=== PATIENT | female | born 1955 | race Caucasian/White ===

== ENCOUNTER 2024-06-14 13:35 | Observation (INO) ==
[2024-06-14 14:14] LABS: iSTAT Creatinine 0.8 mg/dl (0.6-1.3); iSTAT Ionized Calcium 1.21 mmol/l (1.12-1.32); iSTAT Potassium 3.6 mmol/L (3.3-5.0)
[2024-06-14 14:18] LABS: Hematocrit (blood only) 44.3 % (37.0-47.0); Hemoglobin 14.4 g/dl (12.0-16.0); Mean Corpuscular Hgb Conc 32.5 g/dL (32.0-36.0); Mean Corpuscular Volume 89.3 fL (80.0-100.0); Mean Platelet Volume 8.9 fL (9.4-12.4); Platelet Count 353 K/uL (130-400); RDW Coefficient of Variation 12.8 % (11.5-14.5); Red Blood Count 4.96 M/uL (4.20-5.40); White Blood Count 5.29 K/ul (4.8-10.8)
[2024-06-14 14:35] LABS: Albumin Globulin Ratio 1.6 (0.9-2); Albumin Level 4.6 gm/dl (3.4-5.0); BUN Creatinine Ratio 15.1 (10-20); Bilirubin,Total 0.7 mg/dl (0.2-1.0); Calcium 9.6 mg/dl (8.6-10.3); Creatinine Clr Calc Pharmacy 64.3 ml/min; Globulin 2.8 gm/dl (2.5-4.0); Magnesium 2.1 mg/dl (1.7-2.4); Potassium 3.7 mmol/L (3.5-5.1); Total Protein 7.4 gm/dl (6.0-8.3)
[2024-06-14 14:45] LABS: INR 0.9 (0.9-1.1); Partial Thromboplastin Time 27 Seconds (21-31); Prothrombin Time 10.1 Seconds (9.0-12.0)
--- NOTE | 2024-06-14 15:12 | XRay Report ---
EXAM: X-ray chest one-view portable CLINICAL HISTORY: Stroke, alert not called PRIORS: None TECHNIQUE: Frontal view chest FINDINGS: The chest is well-expanded. No airspace consolidation, effusion or congestive changes. Heart size is top normal. No pneumothorax. Trachea is patent. Osseous structures demonstrate no acute abnormality. No radiopaque foreign body. IMPRESSION: No plain film evidence of an acute cardiopulmonary process. Electronically signed by Ana Ramos 06-14-2024 3:11 PM
--- NOTE | 2024-06-14 15:12 | Electrocardiogram Report ---
Test Reason : Blood Pressure : */* mmHG Vent. Rate : 71 BPM Atrial Rate : 71 BPM P-R Int : 142 ms QRS Dur : 88 ms QT Int : 428 ms P-R-T Axes : 45 4 51 degrees QTcB Int : 465 ms Normal sinus rhythm Possible Left atrial enlargement Cannot rule out Anterior infarct , age undetermined Abnormal ECG When compared with ECG of 07-Dec-1994 18:27, MANUAL COMPARISON REQUIRED PREVIOUS ECG IS INCOMPATIBLE Confirmed by Zaina Lopez ([id number]) on 06/14/2024 3:11:35 PM Referred By: Confirmed By: Zaina Lopez
--- NOTE | 2024-06-14 15:36 | Emergency Department Note ---
ED Visit Note I was consulted by the Advanced Practice Provider, Armani Grady PA-C. I personally made/approved the management plan and take responsibility for the patient management. I performed a substantive portion of the visit. This includes the aspects of: -History/Physical/Personally seeing the patient -MDM .
--- NOTE | 2024-06-14 16:13 | Emergency Department Note ---
History of Present Illness General Chief complaint: Neuro Symptoms/Deficit Stated complaint: NUMB LT ARM, TINGLING, VISION PROBLEM Time Seen by Provider: 06/14/24 14:03 History of Present Illness This 68-year-old female presents today with her , for evaluation of left arm tingling. The patient states last evening she had a right-sided temporal headache that was very brief. She did not think much of it. It did not recur. She felt well the rest of the evening. Today while walking, she developed an aura in her left eye. She states there was a zigzag pattern as well as a crescent type abnormality to her vision in the left eye. 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 She also developed left arm tingling and heaviness. She describes it as though she could not lift anything with the arm. There was no true numbness. The ocular symptoms resolved but the tingling in the arm persisted. It has now also resolved. She denies any chest pain, shortness of breath, nausea, vomiting, back pain, or abdominal pain when her symptoms were present. There is no neck or facial pain. She denies any facial droop, change in speech, change in vision, ringing in her ears, or weakness of her legs. She denies any recent trauma or motor vehicle accidents. She spoke with her daughter(nurse) about her symptoms, and her daughter recommended she come to the ED for evaluation. No other treatment. No history of heart disease. Positive history of migraines. No other complaints. Home Medications Medication Instructions Recorded Confirmed Type levothyroxine 137 mcg tablet 137 mcg PO DAILY 06/14/24 06/14/24 History montelukast 10 mg tablet 10 mg PO DAILY 06/14/24 06/14/24 History amlodipine 5 mg tablet 5 mg PO DAILY #30 tabs 06/15/24 Rx aspirin 81 mg tablet,delayed 81 mg PO DAILY #30 tabs 06/15/24 Rx release atorvastatin 40 mg tablet 40 mg PO DAILY #30 tabs 06/15/24 Rx Allergies Allergy/AdvReac Type Severity Reaction Status Date / Time No Known Allergies Allergy Unverified 06/14/24 14:48 Past Med/Surg History Problem List (Updated 06/14/24 @ 17:10 by Celso Grady PA-C) Abnormal ECG (Acute) Elevated troponin I level (Acute) Medical History (Updated 06/14/24 @ 17:10 by Celso Grady PA-C) 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 Surgical History (Updated 06/14/24 @ 16:11 by Celso Grady PA-C) No pertinent past surgical history Family History (Updated 06/14/24 @ 16:11 by Celso Grady PA-C) Other No pertinent family history Social History (Updated 06/14/24 @ 16:12 by Celso Grady PA-C) Smoking Status: Never smoker Tobacco Type: Declines Second Hand Exposure: No; Do You Dip or Chew Tobacco: No; Hx Alcohol Use: No Hx Substance Use: No Preferred Language: Kosovan Communication Ability: Effective Hearing Ability: Normal 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 Beliefs That Will Affect Care: None Current Living Situation: Alone Current Living Situation Comment: Home alone current occupational status: retired Feels Safe at Home: Yes Assistive Devices: None Review of Systems A total of 10 systems reviewed and were otherwise negative Physical Exam Vital Signs Vital Signs - 24 hr 06/14/24 13:42 06/14/24 14:06 Temperature 36.6 C Temperature Source Temporal Artery Scan Pulse Rate 84 Pulse Rate [Left Finger] 81 Pulse Rhythm [Left Finger] Regular Pulse Strength [Left Finger] Normal Respiratory Rate 18 20 Respiratory Effort / Characteristics Non-Labored Spontaneous Non-Labored Spontaneous Respiratory Depth Normal Normal Respiratory Pattern Regular Regular Blood Pressure 194/120 H Blood Pressure [Left Arm] 197/91 H Blood Pressure Mean 144 Blood Pressure Mean [Left Arm] 126 Pulse Oximetry 98 98 Oxygen Delivery Method Room Air Room Air Sepsis Recent Fever Within 48 Hours No Sepsis New/Unexplained Change in Mental Status N/A Sepsis Action Taken by Nursing No Action Required General: Well-developed, well-nourished, elderly white female, in no acute distress. Sitting in a chair. Alert and oriented. Skin: Warm dry with good turgor. No rashes. No ecchymosis or erythema. HEENT: Normocephalic atraumatic. Eyes PERRLA, EOMI. No conjunctiva or scleral injection. Ears TMs intact bilaterally with good light reflexes. No erythema or bulging. No hemotympanum. Canals are patent. Nares patent bilaterally without turbinate enlargement. No significant drainage. No epistaxis. Oropharynx without erythema or exudate. Uvula midline, oral mucosa moist. No lesions present. Heart: Heart RRR. No MGR. Peripheral pulses are 2+. Lungs: Lungs are clear to auscultation. No crackles rhonchi or wheezing. Good air movement. The patient is able to take a deep breath. Abdomen: Abdomen was inspected, auscultated, and palpated. Bowel sounds present x 4. Soft, nontender to palpation. No hepato-splenomegaly. No masses noted. Musculoskeletal: Gross motor function of the upper and lower extremities is intact and unremarkable. She has no discomfort with palpation or motion of the shoulders, elbows, wrists, hips, knees, or ankles. She is able to walk around the room. Neurologic: Cranial nerves II through XII are intact. Gross sensation is intact across the upper and lower extremities by soft touch. No strength or sensation deficit in the left arm compared to the right. Course Administered Medications Discontinued Medications Aspirin (Aspirin 81 Mg Chew) 324 mg PO NOW [facility] Stop: 06/14/24 19:41 Last Admin: 06/14/24 22:50 Dose: 324 mg Documented By: KAJAL Aspirin (Aspirin 81 Mg Ectab) 81 mg PO DAILY [facility] Stop: 07/15/24 08:59 Last Admin: 06/15/24 08:25 Dose: 81 mg Documented By: ROWDY Enoxaparin Sodium (Enoxaparin Inj 40 Mg/0.4 Ml Syr) 40 mg SQ Q24H [facility] Stop: 07/14/24 19:59 Last Admin: 06/14/24 22:30 Dose: 40 mg Documented By: KAJAL Levothyroxine Sodium (Levothyroxine Sodium 137 Mcg Tablet) 137 mcg PO DAILYBB [facility] Stop: 07/15/24 06:29 Last Admin: 06/15/24 05:31 Dose: 137 mcg Documented By: KAJAL Montelukast Sodium (Montelukast Sodium 10 Mg Tablet) 10 mg PO DAILY [facility] Stop: 07/15/24 08:59 Last Admin: 06/15/24 08:25 Dose: 10 mg Documented By: ROWDY Medical Decision Making Differential Diagnosis ACS, acute CO, GERD, peripheral neuropathy, migraine variant, Intracranial hemorrhage, tumor, supratentorial source. Medical Records Attestation: I reviewed the patient's medical records. Home Medications Current Medication List: was personally reviewed by me Laboratory Data CBC obtained today shows a normal white count 5.29. Normal H&H. Normal platelets. Chemistry panel obtained today shows normal electrolytes, normal BUN/creatinine, normal glucose. Normal LFTs. High-sensitivity troponin obtained today is mildly elevated at 14.9. Repeat troponin 1 1/2 hours later shows consistent level at 15.0. 06/15/24 03:55 06/15/24 03:55 Lab Results 06/14/24 06/14/24 06/14/24 Range/Units 13:58 14:02 14:27 WBC 5.29 (4.8-10.8) K/ul RBC 4.96 (4.20-5.40) M/uL Hgb 14.4 (12.0-16.0) g/dl POC Hgb 15.0 (12.0-16.0) g/dl Hct 44.3 (37.0-47.0) % POC Hct 44 (37-47) % MCV 89.3 (80.0-100.0) fL MCH 29.0 (25.0-34.0) pg MCHC 32.5 (32.0-36.0) g/dL RDW Std Deviation 42.0 (36.4-46.3) fL RDW Coeff of She 12.8 (11.5-14.5) % Plt Count 353 (130-400) K/uL MPV 8.9 L (9.4-12.4) fL PT 10.1 (9.0-12.0) Seconds INR 0.9 (0.9-1.1) APTT 27 (21-31) Seconds PTT Ratio 1.0 POC Sodium 141 (135-144) mmol/L Sodium 140 (136-145) mmol/L POC Potassium 3.6 (3.3-5.0) mmol/L Potassium 3.7 (3.5-5.1) mmol/L POC Chloride 103 (101-112) mmol/L Chloride 104 (98-107) mmol/L Carbon Dioxide 30 (21-32) mmol/L POC Total CO2 26 (24-31) mmol/L Anion Gap 6 (3-11) POC Anion Gap 16.0 (16-25) mmol/L POC BUN 12 (7-18) mg/dl BUN 13 (6-23) mg/dl Creatinine 0.86 (0.6-1.2) mg/dl POC Creatinine 0.8 (0.6-1.3) mg/dl Est Cr Clr Drug Dosing 64.3 ml/min eGFR 72.63 BUN/Creatinine Ratio 15.1 (10-20) Glucose 94 (70-99(Fasting)) mg/dl POC Glucose (other) 97 (70-99) mg/dl Calcium 9.6 (8.6-10.3) mg/dl POC Ioniz Calcium Latanya 1.21 (1.12-1.32) mmol/l Magnesium 2.1 (1.7-2.4) mg/dl Total Bilirubin 0.7 (0.2-1.0) mg/dl AST 17 (13-39) U/L ALT 11 (7-52) U/L Alkaline Phosphatase 98 (34-104) U/L Troponin I High Sens 14.9 H (0-14) pg/ml Total Protein 7.4 (6.0-8.3) gm/dl Albumin 4.6 (3.4-5.0) gm/dl Globulin 2.8 (2.5-4.0) gm/dl Albumin/Globulin Ratio 1.6 (0.9-2) // Range/Units 16:04 WBC (4.8-10.8) K/ul RBC (4.20-5.40) M/uL Hgb (12.0-16.0) g/dl POC Hgb (12.0-16.0) g/dl Hct (37.0-47.0) % POC Hct (37-47) % MCV (80.0-100.0) fL MCH (25.0-34.0) pg MCHC (32.0-36.0) g/dL RDW Std Deviation (36.4-46.3) fL RDW Coeff of She (11.5-14.5) % Plt Count (130-400) K/uL MPV (9.4-12.4) fL PT (9.0-12.0) Seconds INR (0.9-1.1) APTT (21-31) Seconds PTT Ratio POC Sodium (135-144) mmol/L Sodium (136-145) mmol/L POC Potassium (3.3-5.0) mmol/L Potassium (3.5-5.1) mmol/L POC Chloride (101-112) mmol/L Chloride (98-107) mmol/L Carbon Dioxide (21-32) mmol/L POC Total CO2 (24-31) mmol/L Anion Gap (3-11) POC Anion Gap (16-25) mmol/L POC BUN (7-18) mg/dl BUN (6-23) mg/dl Creatinine (0.6-1.2) mg/dl POC Creatinine (0.6-1.3) mg/dl Est Cr Clr Drug Dosing ml/min eGFR BUN/Creatinine Ratio (10-20) Glucose (70-99(Fasting)) mg/dl POC Glucose (other) (70-99) mg/dl Calcium (8.6-10.3) mg/dl POC Ioniz Calcium Latanya (1.12-1.32) mmol/l Magnesium (1.7-2.4) mg/dl Total Bilirubin (0.2-1.0) mg/dl AST (13-39) U/L ALT (7-52) U/L Alkaline Phosphatase (34-104) U/L Troponin I High Sens 15.0 H (0-14) pg/ml Total Protein (6.0-8.3) gm/dl Albumin (3.4-5.0) gm/dl Globulin (2.5-4.0) gm/dl Albumin/Globulin Ratio (0.9-2) Imaging Data My Impression: chest x-ray obtained today shows no consolidation, effusion, or congestive changes. No pneumothorax. Radiologist's Impression: Chest X-Ray 06/14/24 13:45 EXAM: X-ray chest one-view portable CLINICAL HISTORY: Stroke, alert not called PRIORS: None TECHNIQUE: Frontal view chest FINDINGS: The chest is well-expanded. No airspace consolidation, effusion or congestive changes. Heart size is top normal. No pneumothorax. Trachea is patent. Osseous structures demonstrate no acute abnormality. No radiopaque foreign body. IMPRESSION: No plain film evidence of an acute cardiopulmonary process. Electronically signed by Ana Ramos 06-14-2024 3:11 PM ECG Data Additional Comments: EKG obtained today was reviewed with Dr. Bello. It shows a normal sinus rhythm with a rate of 71. Possible left atrial enlargement. Anterior infarct cannot be ruled out. There are no recent studies to compare to. Blood Pressure Blood Pressure Findings: Elevated blood pressure Blood Pressure Disposition: Referred to patients primary care provider MDM Narrative The patient was evaluated in room A3. Conservative care measures were discussed. IV was established. Labs were obtained. She was placed on a cardiac surgeon and remained in normal sinus rhythm with a rate in the 70s. No ectopy was noted. EKG was obtained and showed a normal sinus rhythm with possible left atrial enlargement and anterior lead abnormalities. Repeat EKG almost 2 hours later was unchanged. Her lab work was unremarkable except for her troponin which was mildly elevated at 14.9. Repeat troponin almost 2 hours later showed similar level of 15.0. The patient had no further recurrence of symptoms while in the ED. Given her previous symptoms, mildly elevated troponin, EKG changes, and discussion with Dr. Bello, admission was recommended to the patient. she is in agreement. [facility] hospitalist service was contacted. Please see that dictation for final management. She may require further imaging such as CT scan imaging of the head as well as MRI imaging of the head if symptoms persist. She may also require further imaging of the heart such as echocardiogram or cardiac stress evaluation if symptoms or lab values continue to rise. Impression & Plan Elevated troponin I level, Abnormal ECG Care plan was discussed with Dr. Bello. She will be admitted to the hospitalist service. The patient remained stable while in the ED. She is agreeable to admission. Discharge Plan Visit Data Chief Complaint: Neuro Symptoms/Deficit Stated Complaint: NUMB LT ARM, TINGLING, VISION PROBLEM ED Provider: Owen Bello ED Midlevel Provider: Celso Grady Discharge Problem: Elevated troponin I level, Abnormal ECG Patient Disposition: Admitted As Inpatient Condition: Fair Discharge Instructions Interventions: ED Discharge Assessment Last Done: 06/14/24 18:42 ED DC CONDITION Conditon at Discharge Condition at Discharge: Fair
--- NOTE | 2024-06-14 17:29 | History & Physical Report ---
Date of Service June 14, 2024 Assessment & Plan (1) Elevated troponin I level: Plan 68-year-old female presents with left arm paresthesias and periorbital changes. Has slightly abnormal troponin and a slightly abnormal EKG compared to an old one from 1994. Patient is relatively healthy taking Synthroid and Singulair having no other symptoms and with complete resolution of her presenting symptoms. #Left arm tingling slightly abnormal troponin slightly abnormal EKG. Patient will be observed in our facility on telemetry monitoring she is given a full dose aspirin. She will have troponins checked x 2 and echocardiogram checked. Because of the associated history of ocular migraines and the slight visual changes and left arm tingling patient will have a Noncon CT of the head. Patient follows with [facility] and likely would benefit from cardiovascular screening as an outpatient. Will check fasting lipids in the morning. History of Present Illness Primary Care Provider: Juvencio Flower MD 68-year-old female typically follows with [facility] presents with onset of left arm tingling which occurred when she got up to get to the kitchen. 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 The patient has had recent stressors. In the emergency department the patient had a troponin of 14.9 and 15. EKG with nonspecific changes was recommended for observation. 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 Surgical History (Updated 06/14/24 @ 16:11 by Celso Grady PA-C) No pertinent past surgical history Family History (Updated 06/14/24 @ 16:11 by Celso Grady PA-C) Other No pertinent family history Social History (Updated 06/14/24 @ 16:12 by Celso Grady PA-C) Smoking Status: Never smoker Hx Substance Use: No Hearing Ability: Normal current occupational status: retired Feels Safe at Home: Yes Review of Systems Review of Systems: Is [place] of distress no headache, patient's visual changes were her typical for her ocular migraine they were short-lived and resolved no speech or swallowing issues no chest pain, pressure or palpitations no shortness of breath, cough or wheezes no abdominal pain, nausea or vomiting, diarrhea or constipation no dysuria, hematuria or frequency no focal joint pain or swelling no back pain, CVA tenderness or radicular pain no bruising, bleeding or rashes no focal signs of weakness or symptoms where mostly altered sensation no complaints of anxiety or depression.. Physical Exam Physical Exam: The patient appeared well nourished and normally developed. Vital signs as documented. Head exam is normocephalic atraumatic Neck is without JVD, thyromegaly, or carotid bruits. Lungs are clear to auscultation, no focal loss of breath sounds Cardiac exam, Rhythm is regular.. No murmurs, rubs or gallops. Abdominal exam reveals normal bowel sounds, soft non tender, no masses Extremities are nonedematous and both pedal pulses are present Neurologic exam is alert and oriented, no focal loss of strength or sensation Skin is without bruises or rashes Psychologically is without concerns for anxiety or depression.. Results & Data Results & Data Vital Signs (Past 12 Hours) Vital Signs Temp Pulse Pulse Resp BP BP Pulse Ox 06/14/24 17:00 98 06/14/24 14:06 81 20 197/91 H 98 06/14/24 13:42 97.9 F 84 18 194/120 H 98 O2 Del Method 06/14/24 17:00 Room Air 06/14/24 14:06 Room Air 06/14/24 13:42 Room Air Laboratory Results Reviewed troponins of 14.9-15. Reviewed EKG with normal sinus rhythm without any specific changes for ischemia or infarct Code Status & VTE Plan VTE Prophylaxis Plan VTE Prophylaxis will be ordered: Yes PG Care Time/CCT Total # of Minutes Spent Total Time Spent with Patient: Total time spent is greater than 50% in coordination of care (as documented) at patient's floor/unit and/or counseling patient: Coding Level of Care Code 42998 INT INP/OBS CARE 2/MIN Diagnoses Elevated troponin I level R79.89
--- NOTE | 2024-06-14 17:50 | CT Scan Report ---
EXAM: CT head without contrast. History: Left visual changes and left arm paresthesias. Comparison: None. Technique: Using multidetector thin collimation helical acquisition technique, axial, coronal and sagittal CT images from the skull base to the vertex without intravenous contrast. Dose reduction techniques were achieved by using automatic exposure control and/or adjustment of mA and/or kV according to patient size and/or use of iterative reconstruction technique. Findings: Comic Book Writer film demonstrates no hemorrhage, mass or acute large ter no acute abnormality. Brain windows demonstrate ventricles and sulci to be within normal limits for patient's age. No hemorrhage, mass or acute large territorial infarct. No midline shift. Basal cisterns are patent. Hyposmall hypodensity density right go radiata and centrum semiovale. Orbital soft tissues demonstrate are within normal limits. Bone windows demonstrate skull base and bony calvarium to be within normal limits. Impression: Nonspecific focal hypodensity right go radiata and centrum semiovale. Small acute infarct at this level cannot be excluded. Correlate with clinical data. MRI would be helpful for further characterization. Otherwise no acute process. Electronically signed by Obdulio Lee 06-14-2024 5:50 PM
[2024-06-14 19:40] VITALS: RESP 18
[2024-06-14] MEDS ORDERED: NITROGLYCERIN SL 0.4 MG/TAB TAB SL PRN (19:40)
[2024-06-14] MEDS ORDERED: MAGNESIUM HYDROXIDE SUSP 30 ML UDC PO PRN (19:40)
[2024-06-14] MEDS ORDERED: ACETAMINOPHEN 325 MG TAB PO PRN (19:40)
[2024-06-14] MEDS ORDERED: ONDANSETRON INJ 2 MG/ML 2 ML VIAL IV PRN (19:40)
[2024-06-14] MEDS: ENOXAPARIN INJ 40 MG/0.4 ML SYR SQ SCH (22:30)
[2024-06-14] MEDS: ASPIRIN 81 MG CHEW PO STA (22:50)
[2024-06-15 03:03] VITALS: O2SAT 96
[2024-06-15 04:09] LABS: Hematocrit (blood only) 38.1 % (37.0-47.0); Hemoglobin 12.6 g/dl (12.0-16.0); Mean Corpuscular Hemoglobin 29.4 pg (25.0-34.0); Mean Corpuscular Hgb Conc 33.1 g/dL (32.0-36.0); Mean Corpuscular Volume 88.8 fL (80.0-100.0); Mean Platelet Volume 8.9 fL (9.4-12.4); Platelet Count 328 K/uL (130-400); RDW Coefficient of Variation 12.7 % (11.5-14.5); RDW Standard Deviation 41.6 fL (36.4-46.3); Red Blood Count 4.29 M/uL (4.20-5.40); White Blood Count 5.46 K/ul (4.8-10.8)
[2024-06-15 04:24] LABS: BUN Creatinine Ratio 27.7 (10-20); Calcium 8.8 mg/dl (8.6-10.3); Chol HDL Ratio 2.9 (0-5); Potassium 3.5 mmol/L (3.5-5.1)
[2024-06-15 04:31] LABS: Troponin I High Sensitivity 18.5 pg/ml (0-14)
[2024-06-15] MEDS: LEVOTHYROXINE SODIUM 137 MCG TABLET PO SCH (05:31)
--- NOTE | 2024-06-15 07:26 | Hospitalist Progress Note ---
Date of Service June 15, 2024 Assessment & Plan (1) Elevated troponin I level: Plan 68-year-old female presents with left arm paresthesias and periorbital changes. Has slightly abnormal troponin and a slightly abnormal EKG compared to an old one from 1994. Patient is relatively healthy taking Synthroid and Singulair having no other symptoms and with complete resolution of her presenting symptoms. #Left arm tingling slightly abnormal troponin slightly abnormal EKG. Patient will be observed in our facility on telemetry monitoring she is given a full dose aspirin. She will have troponins checked x 2 and echocardiogram checked. Because of the associated history of ocular migraines and the slight visual changes and left arm tingling patient will have a Noncon CT of the head. Patient follows with [facility] and likely would benefit from cardiovascular screening as an outpatient. Will check fasting lipids in the morning. # CT head with concern of small subacute stroke, await Echo, on aspirin, discuss statin, discuss MRI Admission and Anticipated Discharge Date Admission Date: June 14, 2024 Results & Data Results & Data Vital Signs (Past 12 Hours) Vital Signs Temp Pulse Pulse Resp BP Pulse Ox O2 Del Method 06/15/24 07:07 97.7 F 67 18 167/80 H 96 Room Air 06/15/24 03:02 97.7 F 70 18 163/86 H 96 Room Air 06/14/24 22:43 97.7 F 67 18 143/76 H 97 Room Air 06/14/24 22:12 86 06/14/24 19:40 97.9 F 85 16 191/93 H 98 Room Air PG Care Time/CCT Total # of Minutes Spent Total Time Spent with Patient: Total time spent is greater than 50% in coordination of care (as documented) at patient's floor/unit and/or counseling patient: Coding Diagnoses Elevated troponin I level R79.89
[2024-06-15] MEDS: ASPIRIN 81 MG ECTAB PO SCH (08:25)
[2024-06-15] MEDS: MONTELUKAST SODIUM 10 MG TABLET PO SCH (08:25)
[2024-06-15] MEDS ORDERED: LORazepam 0.5 MG TAB PO STA (08:46)
--- NOTE | 2024-06-15 08:48 | Electrocardiogram Report ---
Test Reason : Blood Pressure : */* mmHG Vent. Rate : 69 BPM Atrial Rate : 69 BPM P-R Int : 150 ms QRS Dur : 84 ms QT Int : 436 ms P-R-T Axes : 43 5 29 degrees QTcB Int : 467 ms Normal sinus rhythm Cannot rule out Anterior infarct (cited on or before 14-Jun-2024) Abnormal ECG When compared with ECG of 14-Jun-2024 13:48, No significant change was found Confirmed by Zaina Lopez ([id number]) on 06/15/2024 8:48:25 AM Referred By: REFERRED SELF Confirmed By: Zaina Lopez
[2024-06-15 11:37] VITALS: BP 183/93; TEMP 97.9
[2024-06-15] MEDS ORDERED: Nursing to Pharmacy Communication SCH (14:15)
[2024-06-15] MEDS ORDERED: STROKE PATIENT DISCHARGE STA (14:22)
[2024-06-15] MEDS ORDERED: PHARMACIST DISCHARGE MED REC CONSULT ONE (14:30)
--- NOTE | 2024-06-15 14:34 | Discharge Summary ---
Discharge Summary Date of Service June 15, 2024 Principal Dx & Hospital Course #1 = Principal Diagnosis (1) Elevated troponin I level: Plan 68-year-old female presents with left arm paresthesias and periorbital changes. Has slightly abnormal troponin and a slightly abnormal EKG compared to an old one from 1994. Patient is relatively healthy taking Synthroid and Singulair having no other symptoms and with complete resolution of her presenting symptoms. CT scan suggest small stroke as possible etiology of her symptoms #Left arm tingling slightly abnormal troponin slightly abnormal EKG. troponin trend did not rise significantly. Echocardiogram is not read at time of discharge however I feel most of her symptoms might be related to the small stroke seen on CT scan of the head. # CT head with concern of small acute stroke, MRI cannot have the patient scheduled within the calendar day. Subsequently patient was to go home and have an outpatient MRI performed. She will be on a baby aspirin a day and atorvastatin 40. She is mildly hypertensive and will initiate low-dose amlodipine to help with blood pressure control course all this will need to be followed up with her family physician as an outpatient Notes For Next Care Provider Patient will need atorvastatin amlodipine survey to see if there are appropriate medications for her. Follow-up in echo results and MRI will need to be scheduled. Additional cardiovascular screening such as carotid arteries could be considered Admission HPI Per Admitting Provider 68-year-old female typically follows with [facility] medicine presents with onset of left arm tingling which occurred when she got up to get to the kitchen. 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 The patient has had recent stressors. In the emergency department the patient had a troponin of 14.9 and 15. EKG with nonspecific changes was recommended for observation. Discharge Exam Awake alert appropriate complete resolution of symptoms no neurological deficits Discharge Plan Discharge Items Patient Disposition: Home - Self-Care Reason For Visit: LEFT ARM TINGLING Discharge Diagnosis: possible subacute stroke elevation of troponin level Activity: Per Instructions section Activity Comment: no intentional exercise until seen in follow up Non-emergency contact: Primary Care Provider and Neurologist Call non-emergency contact if: your symptoms worsen Follow-up/Referrals: Juvencio Flower MD [Primary Care Provider] - 06/18/24 11:05 am (Hospital follow up scheduled June 18 at 11:05) Diet: Heart Healthy Addtl Attending Provider Instructions: A stroke is damage to the brain that occurs when a blood vessel in the brain bursts or is blocked by a blood clot. Without blood and the oxygen it carries, part of the brain is damaged. The part of your body controlled by that part of your brain may not function properly now. The brain is an amazing organ that can heal itself to some degree. The stroke you had damaged part of your brain. But other parts of your brain may take over in some way for the damaged areas. Your doctor will talk with you about what you can do to prevent another stroke. You can help by managing other health problems that raise your risk, such as atrial fibrillation or high blood pressure. Have a heart-healthy lifestyle which includes being active, eating healthy foods, staying at a healthy weight, and not smoking. You may also take medicine that prevents blood clots. Enter a stroke rehabilitation (rehab) program if your doctor recommends it. Stroke rehab is training and therapy to help you recover, prevent problems, and relearn how to do everyday things you have not been able to do since your stroke. The focus will depend on how the stroke has affected your ability to do the things you want and need to do. Follow-up care is a prasad part of your treatment and safety.Be sure to make and go to all appointments, and call your doctor or nurse advice line if you are having problems. It's also a good idea to know your test results and keep a list of the medicines you take. How can you care for yourself at home? Manage other health problems that raise your risk of another stroke. These include atrial fibrillation, diabetes, high blood pressure, and high cho lesterol.Have a heart-healthy lifestyle. Don't smoke and avoid second-hand smoke. If you drink alcohol, try to drink less. Your risk of harm from alcohol is low if you have 2 drinks or lessper week. Work with your doctor to find what is right for you. Stay at a healthy weight. Lose weight if you need to. Be active. Ask your doctor what type and level of activity is safe for you. Eat heart-healthy foods. These include vegetables, fruits, nuts, beans, lean meat, fish, and whole grains. Limit sodium and sugar.Avoid infections such as COVID-19, colds, and influenza (flu). Get the flu vaccine every year. Get a pneumococcal vaccine shot. If you have had one before, ask your doctor whether you need another dose. Stay up to date on your COVID-19 vaccines.If you think you may have a problem with alcohol or drug use, talk to your doctor. Medicines Be safe with medicines. Take your medicines exactly as prescribed. Call your doctor or nurse advice line if you think you are having a problem with your medicine. You will get more details on the specific medicines your doctor prescribes.You may take a few medicines to help lower your risk of another stroke. These include: Blood pressure medicine such as an IVONE (angiotensin-converting enzyme) inhibitor, angiotensin II receptor meena (ARBs), or diuretic. Cholesterol medicine such as a statin. Aspirin or another blood thinner to prevent blood clots.If your doctor prescribed a blood thinner, be sure you get instructions about how to take your medicine safely. Blood thinners can cause serious bleeding problems.Do not take any wesm-hfz-rjdufmy medicines or natural health products without talking to your doctor first.If you take hormonal control or hormone therapy for menopause, talk to your doctor about whether they are right for you. They may raise the risk of stroke in some people. When should you call for help? [id number] you think you may need emergency care. For example, call if: You have signs of another stroke. These may include: Sudden numbness, tingling, weakness, or loss of movement in your face, arm, or leg, especially on only one side of your body. Sudden vision changes. Sudden trouble speaking. Sudden confusion or trouble understanding simple statements. Sudden problems with walking or balance. A sudden, severe headache that is different from past headaches. Fainting. A seizure.[id number] if these symptoms go away in a few minutes. Call your doctor or nurse advice line nowor seek immediate medical care if: You have new symptoms that may be related to your stroke, such as falls or trouble swallowing. Addtl Public Works Technician Provider Instructions: It be in your best interest to complete an outpatient MRI of your brain and follow-up with your primary care about the final read of your echocardiogram. Pending Studies at Discharge: Yes Studies:: Final Echo read, MRI not performed Stand-Alone Forms: My [facility] [employer], Smoking Cessation, Medications to Prevent Stroke Medications and DC Order Prescriptions: New aspirin 81 mg Tablet,Delayed Release (Dr/Ec) 81 mg PO DAILY Qty: 30 5RF atorvastatin 40 mg tablet 40 mg PO DAILY Qty: 30 5RF amlodipine 5 mg tablet 5 mg PO DAILY Qty: 30 5RF Continued levothyroxine 137 mcg tablet 137 mcg PO DAILY montelukast 10 mg tablet 10 mg PO DAILY Discharge Orders: Discharge Order (Routine); Ordered 06/15/24 Ordered By: Nikolas Mary/Other Patient Handouts: Symptoms of Stroke, Stroke: Taking Medicines Admission Data Admit Date/Time: 06/14/24 17:05 Attending Provider: Nikolas Jose Admit Provider: Nikolas Jose Primary Care Provider: Juvencio Flower Other Providers: Nikolas Jose Other Interventions: Discharge Summary Assessment (RN) Last Done: 06/15/24 14:42 Hospital Stay Data Consultations 06/14/24 16:58 ED Decision to Admit Stat Diagnostic Imagining Performed 06/14/24 17:19 CT head/brain wo con Routine 06/15/24 08:46 MRI Brain [MR brain wo con] Routine Pending Results Patient Have Any Pending Studies at Discharge: Yes Discharge Instructions Given to Patient (Per Discharging Provider) A stroke is damage to the brain that occurs when a blood vessel in the brain bursts or is blocked by a blood clot. Without blood and the oxygen it carries, part of the brain is damaged. The part of your body controlled by that part of your brain may not function properly now. The brain is an amazing organ that can heal itself to some degree. The stroke you had damaged part of your brain. But other parts of your brain may take over in some way for the damaged areas. Your doctor will talk with you about what you can do to prevent another stroke. You can help by managing other health problems that raise your risk, such as atrial fibrillation or high blood pressure. Have a heart-healthy lifestyle which includes being active, eating healthy foods, staying at a healthy weight, and not smoking. You may also take medicine that prevents blood clots. Enter a stroke rehabilitation (rehab) program if your doctor recommends it. Stroke rehab is training and therapy to help you recover, prevent problems, and relearn how to do everyday things you have not been able to do since your stroke. The focus will depend on how the stroke has affected your ability to do the things you want and need to do. Follow-up care is a prasad part of your treatment and safety.Be sure to make and go to all appointments, and call your doctor or nurse advice line if you are having problems. It's also a good idea to know your test results and keep a list of the medicines you take. How can you care for yourself at home? Manage other health problems that raise your risk of another stroke. These include atrial fibrillation, diabetes, high blood pressure, and high cholesterol.Have a heart-healthy lifestyle. Don't smoke and avoid second-hand smoke. If you drink alcohol, try to drink less. Your risk of harm from alcohol is low if you have 2 drinks or lessper week. Work with your doctor to find what is right for you. Stay at a healthy weight. Lose weight if you need to. Be active. Ask your doctor what type and level of activity is safe for you. Eat heart-healthy foods. These include vegetables, fruits, nuts, beans, lean meat, fish, and whole grains. Limit sodium and sugar.Avoid infections such as COVID-19, colds, and influenza (flu). Get the flu vaccine every year. Get a pneumococcal vaccine shot. If you have had one before, ask your doctor whether you need another dose. Stay up to date on your COVID-19 vaccines.If you think you may have a problem with alcohol or drug use, talk to your doctor. Medicines Be safe with medicines. Take your medicines exactly as prescribed. Call your doctor or nurse advice line if you think you are having a problem with your medicine. You will get more details on the specific medicines your doctor prescribes.You may take a few medicines to help lower your risk of another stroke. These include: Blood pressure medicine such as an IVONE (angiotensin-converting enzyme) inhibitor, angiotensin II receptor meena (ARBs), or diuretic. Cholesterol medicine such as a statin. Aspirin or another blood thinner to prevent blood clots.If your doctor prescribed a blood thinner, be sure you get instructions about how to take your medicine safely. Blood thinners can cause serious bleeding problems.Do not take any wxpu-ail-zfnoulk medicines or natural health products without talking to your doctor first.If you take hormonal control or hormone therapy for menopause, talk to your doctor about whether they are right for you. They may raise the risk of stroke in some people. When should you call for help? [id number] you think you may need emergency care. For example, call if: You have signs of another stroke. These may include: Sudden numbness, tingling, weakness, or loss of movement in your face, arm, or leg, especially on only one side of your body. Sudden vision changes. Sudden trouble speaking. Sudden confusion or trouble understanding simple statements. Sudden problems with walking or balance. A sudden, severe headache that is different from past headaches. Fainting. A seizure.[id number] if these symptoms go away in a few minutes. Call your doctor or nurse advice line nowor seek immediate medical care if: You have new symptoms that may be related to your stroke, such as falls or trouble swallowing. Total Time Total Time Spent Total Time Spent (In Minutes): It required greater than 30 minutes to prepare this patient for discharge. Coding Level of Care Code 88933 INP/OBS DISCH >30 MIN Diagnoses Elevated troponin I level R79.89
[2024-06-15 14:44] VITALS: PULSE 80
--- NOTE | 2024-06-15 15:06 | Pharmacy Report ---
- Date of Service June 15, 2024 - Pharmacy CVA/TIA Medication Review Medications to Prevent Stroke handout has been added to the patients discharge packet. Antiplatelet(s) * Aspirin 81mg Cholesterol * High intensity statin: atorvastatin 40 mg daily DVT Prophylaxis * Enoxaparin SQ Therapeutic Anticoagulation * No history of Afib/Aflutter noted Type 2 Diabetes * Patient does not have T2DM
--- NOTE | 2024-06-15 15:14 | XCELERA ---
[id number] \\[id number]
--- NOTE | 2024-06-17 10:10 | Pharmacy Report ---
Pharmacist Stroke Counseling - Date of Service June 17, 2024 - Scope: Pharmacy has been consulted to provide medication discharge counseling for this patient admitted with possible ischemic stroke as per the Pharmacist Discharge Counseling for Stroke Patients Protocol. - Medications on Discharge: Home Medications Medication Instructions Recorded Confirmed levothyroxine 137 mcg tablet 137 mcg PO DAILY 06/14/24 06/14/24 montelukast 10 mg tablet 10 mg PO DAILY 06/14/24 06/14/24 New Rx's Medication Instructions Recorded amlodipine 5 mg tablet 5 mg PO DAILY #30 tabs 06/15/24 aspirin 81 mg tablet,delayed 81 mg PO DAILY #30 tabs 06/15/24 release atorvastatin 40 mg tablet 40 mg PO DAILY #30 tabs 06/15/24 - Action: The above medications, specifically ones for stroke treatment/prophylaxis, have been reviewed in detail with the patient and/or patient banking representative(s) prior to discharge. This includes indication, common adverse reactions, drug interactions, and medication administration. Medication counseling has been employed using the teach-back method to ensure understanding. - Outcome: The patient and/or patient banking representative(s) have demonstrated understanding of the medications. Additional comments: Discussed atorvastatin and HDL levels- main benefit is reduction in LDL but patient concerned with lowering HDL levels which are very good at current time. Statins typically do not change or provide minimal/moderate increase HDL, typically increase seen in patients with low levels of HDL. Some patients have also had transient decrease, overall benefit of decreasing LDL typically would outweigh change. Still awaiting stroke confirmation/MRI- encouraged patient to discuss with physician as appropriateness seems to be yet to be determined. Patient also asked regarding supplement "Relief Factor"- this does contain supplements that can have blood thinning properties. Patient was prescribed aspirin. Encouraged patient to discuss continuation with her outpatient provider. Thank you for allowing pharmacy to be involved in the care of this patient. Please call [phone] with any additional questions
== END 2024-06-15 15:31 | disposition home or self-care (01) ==
LOC: ED 13:35 → 2S 13:35